=== PATIENT | female | born 1975 | race Caucasian/White ===

== ENCOUNTER 2022-02-03 10:28 | Emergency (ER) | payer OTHER ==
[~2022-02-03] VITALS: Ht 162.6 cm; Wt 90.7 kg
[2022-02-03] MEDS ORDERED: FAMOTIDINE 20 MG/2 ML VIAL IV STA (10:50)
[2022-02-03] MEDS ORDERED: ONDANSETRON HCL INJ 2MG/ML 2ML 2 MG/ML VIAL IV STA (10:50)
[2022-02-03] MEDS ORDERED: LACTATED RINGER'S 1,000 ML INJ STA (10:50)
[2022-02-03] MEDS ORDERED: ONDANSETRON HCL INJ 2MG/ML 2ML 2 MG/ML VIAL ONE (11:04)
[2022-02-03] MEDS ORDERED: LACTATED RINGER'S 1,000 ML ONE (11:04)
[2022-02-03 11:32] LABS: BASOPHILS % 0.3 % (0.0-1.0); EOSINOPHILS # (AUTO) 0.2 (0.0-0.4); EOSINOPHILS % 1.4 % (0.0-6.0); HEMATOCRIT 40.5 % (34.2-44.1); HEMOGLOBIN 13.4 g/dL (12.0-16.0); LYMPHOCYTES % 17.3 % (18.0-39.1); MEAN CORPUSCULAR HEMOGLOBIN 29.8 pg (28-32); MEAN CORPUSCULAR HGB CONC 33.1 g/dL (31-35); MONOCYTES # (AUTO) 0.9 (0.2-0.8); MONOCYTES % 7.8 % (4.4-11.3); NEUTROPHILS # (AUTO) 8.6 (2.1-6.9); NEUTROPHILS % 72.9 % (38.7-80.0); PLATELET COUNT 331 x10e3/uL (140-360); RED CELL DISTRIBUTION WIDTH 13.7 % (11.7-14.4)
[2022-02-03 11:57] LABS: ALBUMIN 3.7 g/dL (3.5-5.0); ALBUMIN/GLOBULIN RATIO 0.9 (0.8-2.0); ANION GAP 13.2 mmol/L (8-16); CALCIUM 9.6 mg/dL (8.4-10.2); CREATININE, SERUM 0.71 mg/dL (0.57-1.11); POTASSIUM 3.2 mmol/L (3.5-5.1)
[2022-02-03 13:07] LABS: CLARITY,URINE SL CLOUDY (CLEAR); COLOR,URINE YELLOW (YELLOW); KETONES,URINE 1+ (NEGATIVE); LEUKOCYTE ESTERASE ,URINE NEGATIVE (NEGATIVE); NITRITE,URINE POSITIVE (NEGATIVE); PROTEIN,URINE DIPSTICK NEGATIVE (NEGATIVE); URINE UROBILINOGEN 1 mg/dL (0.2 - 1)
[2022-02-03 13:23] LABS: RBC,URINE 0-5 /HPF (0-5)
[2022-02-03 13:24] LABS: BACTERIA,URINE MANY /HPF; EPITHELIAL CELLS,URINE FEW /LPF
[2022-02-03] MEDS ORDERED: CIPRO500 MG PO (13:50)
[2022-02-03] MEDS ORDERED: ONDANSETRON ODT4 MG PO (13:50)
== END 2022-02-03 14:17 | disposition home or self-care (01) ==
LOC: ER 10:45
DX: R11.2 Nausea with vomiting, unspecified (principal); N39.0 Urinary tract infection, site not specified; R50.9 Fever, unspecified; Z20.822 Contact with and (suspected) exposure to COVID-19
CPT/HCPCS: 36415; 80053; 81001; 83690; 84484; 85025; 99284; J2405; J7121; U0002

== ENCOUNTER 2022-02-03 15:41 | Emergency (ER) | payer OTHER ==
[~2022-02-03] VITALS: Ht 162.6 cm; Wt 90.7 kg
[~2022-02-03 15:41] MED LIST: CIPRO500 MG PO; ONDANSETRON ODT4 MG PO
[2022-02-03] MEDS ORDERED: CIPROFLOXACIN 500 MG TAB PO STA (15:57)
[2022-02-03] MEDS ORDERED: MECLIZINE HCL 12.5 MG TAB PO ONE (16:00)
[2022-02-03] MEDS ORDERED: ACETAMINOPHEN 325 MG TAB PO ONE (16:00)
[2022-02-03] MEDS ORDERED: METOCLOPRAMIDE HCL 10 MG/2ML VIAL IV ONE (16:00)
[2022-02-03] MEDS ORDERED: LISINOPRIL 10 MG TAB PO ONE (16:15)
== END 2022-02-03 18:51 | disposition home or self-care (01) ==
LOC: ER 15:45
DX: R42 Dizziness and giddiness (principal); N39.0 Urinary tract infection, site not specified; R11.2 Nausea with vomiting, unspecified; R51.9 Headache, unspecified; I10 Essential (primary) hypertension; K21.9 Gastro-esophageal reflux disease without esophagitis
CPT/HCPCS: 70450; 99283; J2765; J8597

== ENCOUNTER 2022-10-25 13:10 | Emergency (ER) | payer OTHER ==
[~2022-10-25] VITALS: Ht 162.6 cm; Wt 90.7 kg
[2022-10-25] MEDS ORDERED: CEFUROXIME500 MG PO (13:41)
[2022-10-25] MEDS ORDERED: METRONIDAZOLE500 MG PO (13:41)
== END 2022-10-25 13:45 | disposition home or self-care (01) ==
LOC: ER 13:20
DX: S61.452A Open bite of left hand, initial encounter (principal); S61.451A Open bite of right hand, initial encounter; W55.01XA Bitten by cat, initial encounter; I10 Essential (primary) hypertension; Z88.6 Allergy status to analgesic agent; Z88.0 Allergy status to penicillin; Z88.2 Allergy status to sulfonamides; Z88.8 Allergy status to other drugs, medicaments and biological substances
CPT/HCPCS: 99282

== ENCOUNTER 2022-10-31 00:52 | Emergency (ER) | payer OTHER ==
[~2022-10-31] VITALS: Ht 162.6 cm; Wt 90.7 kg
[~2022-10-31 00:52] MED LIST changes: +CEFUROXIME500 MG PO; +METRONIDAZOLE500 MG PO
[2022-10-31] MEDS ORDERED: MEDROL4 M2 PO (01:28)
[2022-10-31] MEDS ORDERED: ORPHENADRINE C100 MG PO (01:28)
[2022-10-31] MEDS ORDERED: ORPHENADRINE CITRATE 30 MG/ML VIAL IM ONE (01:30)
[2022-10-31] MEDS ORDERED: KETOROLAC TROMETHAMINE 60 MG/2 ML VIAL IM ONE (01:30)
== END 2022-10-31 01:45 | disposition home or self-care (01) ==
LOC: ER 00:58
DX: M54.12 Radiculopathy, cervical region (principal); M25.511 Pain in right shoulder; I10 Essential (primary) hypertension; K21.9 Gastro-esophageal reflux disease without esophagitis; F41.9 Anxiety disorder, unspecified
CPT/HCPCS: 99282; J1885; J2360